=== PATIENT | male | born 1985 ===

== ENCOUNTER 2017-02-10 17:50 | Emergency (ER) | payer OTHER ==
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
[2017-02-10 20:53] VITALS: BP 110/72; PULSE 94; RESP 17; TEMP 97.9; O2SAT 98
[2017-02-10] MEDS ORDERED: Bacitracin 500 Units/gm Oint Foilpak UD ONE (20:56)
--- NOTE | 2017-02-11 09:11 | RAD ---
PROCEDURE: Cervical Spine Radiographs. HISTORY: Pain. COMPARISON: None. FINDINGS: BONES: There is straightening of the normal cervical lordosis. No fracture. Dens Intact. DISC SPACES: Normal. SOFT TISSUES: Normal. No prevertebral soft tissue swelling. OTHER FINDINGS: None. IMPRESSION: No fracture or subluxation. Cervical spine straightening
--- NOTE | 2017-02-11 09:12 | RAD ---
PROCEDURE: Radiographs of the Chest and Left Ribs. HISTORY: injury COMPARISON: None available. TECHNIQUE: Frontal radiograph of the chest and multiple oblique radiographs of the left ribs were obtained. FINDINGS: LEFT RIBS: No fracture or focal lesion visualized. LUNGS: Clear. PLEURA: No pneumothorax or pleural fluid. CARDIOVASCULAR: Normal sized heart. No pulmonary vascular congestion. OTHER FINDINGS: None. IMPRESSION: Unremarkable radiographs of the chest and left ribs. No left rib fracture.
--- NOTE | 2017-02-11 21:28 | CARD ---
APPROVED REPORT EKG Measurement Heart [id number] <Conclusion> Normal sinus rhythm with sinus arrhythmia Nonspecific ST and T wave abnormality Abnormal ECG
== END 2017-02-10 20:53 | disposition home or self-care (01) ==
LOC: C.ER 17:50
DX: S16.1XXA Strain of muscle, fascia and tendon at neck level, initial encounter (principal); S20.212A Contusion of left front wall of thorax, initial encounter; T22.112A Burn of first degree of left forearm, initial encounter; W22.11XA Striking against or struck by driver side automobile airbag, initial encounter; V43.52XA Car driver injured in collision with other type car in traffic accident, initial encounter; Y92.410 Unspecified street and highway as the place of occurrence of the external cause; R07.89 Other chest pain

== ENCOUNTER 2018-03-08 20:18 | Emergency (ER) | payer SELFPAY ==
[2018-03-08 20:28] VITALS: O2SAT 98
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
[2018-03-08 21:34] LABS: BASO # 0.1 K/uL (0.0-0.2); BASO % 1.1 % (0.0-2.0); EOS % 0.7 % (0.0-4.0); HEMOGLOBIN 12.9 g/dL (12.0-18.0); LYMPH # 1.9 K/uL (1.0-4.3); LYMPH % 38.1 % (20.0-40.0); MEAN CELL VOLUME 82.9 fL (80.0-94.0); MEAN CORPUSCULAR HEMOGLOBIN 27.5 pg (27.0-31.0); MEAN CORPUSCULAR HGB CONC 33.2 g/dL (33.0-37.0); MEAN PLATELET VOLUME 9.4 fL (7.2-11.7); MONO # 0.4 K/uL (0.0-0.8); MONO % 8.4 % (0.0-10.0); NEUT # 2.6 K/uL (1.8-7.0); NEUT % 51.7 % (50.0-75.0); NRBC % 0.1 % (0.0-2.0); RBC 4.68 Mil/uL (4.40-5.90); RED CELL DISTRIBUTION WIDTH 13.7 % (11.5-14.5)
[2018-03-08 21:39] LABS: SQUAMOUS EPITHIAL < 1 /hpf (0-5); URINE AMORPHOUS SEDIMENT MODERATE /ul (<OCC); URINE BACTERIA OCC (<OCC); URINE BILIRUBIN NEGATIVE (NEGATIVE); URINE BLOOD 2+ (NEGATIVE); URINE CLARITY Hazy (Clear); URINE COLOR Yellow (YELLOW); URINE GLUCOSE (UA) NORMAL (Normal); URINE LEUKOCYTE ESTERASE NEG Leu/uL (Negative); URINE PROTEIN NEGATIVE (NEGATIVE); URINE UROBILINOGEN NORMAL mg/dL (0.2-1.0)
[2018-03-08 21:44] LABS: ALB/GLOB RATIO 1.1 (1.0-2.1); ALT/SGPT 64 U/L (21-72); AST/SGOT 38 U/L (17-59); BLOOD UREA NITROGEN 13 mg/dL (9-20); CALCIUM 8.9 mg/dl (8.6-10.4); GFR AFRICAN-AMERICAN > 60; GFR NON-AFRICAN AMERICAN > 60
[2018-03-08 21:50] LABS: BARBITURATES, UR NEGATIVE (NEGATIVE); BENZODIAZEPINES, UR NEGATIVE (NEGATIVE); OPIATES, UR NEGATIVE (NEGATIVE); PHENCYCLIDINE, UR NEGATIVE (NEGATIVE)
[2018-03-09 00:26] VITALS: RESP 20
[2018-03-09 05:36] VITALS: BP 133/72; PULSE 99; TEMP 97.8
--- NOTE | 2018-03-10 00:06 | CARD ---
APPROVED REPORT EKG Measurement Heart [id number] NM [id number] [id number] <Conclusion> Sinus tachycardia Possible Left atrial enlargement Borderline ECG
== END 2018-03-09 05:36 | disposition home or self-care (01) ==
LOC: C.ER 20:18
DX: F10.20 Alcohol dependence, uncomplicated (principal); Z72.0 Tobacco use
CPT/HCPCS: 80053; 81001; 85025; 93005; 96372; 99285; G0480; J2060; J3486

== ENCOUNTER 2018-05-13 13:50 | Emergency (ER) | payer OTHER ==
[2018-05-13 14:03] VITALS: BP 132/80; PULSE 110; RESP 18; TEMP 98.8; O2SAT 97
--- NOTE | 2018-05-13 14:42 | RAD ---
Right ankle three views History: Pain. Fall. Comparison: None available. Findings: No evidence for acute displaced fracture or dislocation. Ankle mortise is maintained. Talar dome is intact. Impression: Negative acute. If pain persists, consider MRI.
--- NOTE | 2018-05-13 15:05 | C.PDOC ---
History Of Present Illness 32 y/o male presents to the ER complaining of right ankle pain since yesterday after tripping and twisting his right ankle when getting off the bus. He states that pain is worsened with ambulation and weight bearing. He denies any other injuries, sensory changes. Time Seen by Provider: 05/13/18 14:08 Chief Complaint (Nursing): Lower Extremity Problem/Injury History Per: Patient History/Exam Limitations: no limitations Onset/Duration Of Symptoms: Days Current Symptoms Are (Timing): Still Present Severity: Mild - Ankle/Foot Description Of Injury: Twisted Currently Unable To: Bear Weight, Bend Or Move Past Medical History Reviewed: Historical Data, Nursing Documentation, Vital Signs Vital Signs: Last Vital Signs Temp 98.8 F 05/13/18 14:01 Pulse 110 H 05/13/18 14:01 Resp 18 05/13/18 14:01 BP 132/80 05/13/18 14:01 Pulse Ox 97 05/13/18 16:24 - Medical History PMH: No Chronic Diseases Surgical History: No Surg Hx Family History: States: No Known Family Hx - Social History Hx Tobacco Use: Yes Hx Alcohol Use: Yes Hx Substance Use: No - Immunization History Hx Tetanus Toxoid Vaccination: No Hx Influenza Vaccination: No Hx Pneumococcal Vaccination: No Review Of Systems Constitutional: Negative for: Fever Musculoskeletal: Positive for: Other (Right ankle pain). Negative for: Back Pain, Leg Pain Skin: Negative for: Rash Neurological: Negative for: Weakness, Numbness Physical Exam - Physical Exam Appears: Well, Non-toxic, No Acute Distress Skin: Normal Color, Warm, Dry, No Rash Head: Atraumatic, Normacephalic Eye(s): bilateral: Normal Inspection Cardiovascular: Rhythm Regular Respiratory: Normal Breath Sounds, No Rales, No Rhonchi, No Wheezing Extremity: Tenderness (Tenderness to palpation at right lateral malleolus and anterior ankle. ), No Deformity, Swelling (Mild swelling at right ankle ), Other (Abrasion to the right hebert) Pulses: Left Dorsalis Pedis: Normal, Right Dorsalis Pedis: Normal Neurological/Psych: Oriented x3, Normal Sensation ED Course And Treatment O2 Sat by Pulse Oximetry: 97 (RA) Pulse Ox Interpretation: Normal - Other Rad XR right ankle X-Ray: Viewed By Me, Read By Radiologist Interpretation: Accession No. : [id number]. Patient Name / ID : KELLY Rodriguez / [id number]. Exam Date : 05/13/2018 14:14:48 ( Approved ). Study Comment : Sex / Age : M / 32Y. Creator : Delvin Tabares MD. Dictator : Delvin Tabares MD. Hearing Aid Fitter : Clinical Nurse Leader : Delvin Tabares MD. Approver2 : Report Date : 05/13/2018 14:40:45. My Comment : . Right ankle three views. History: Pain. Fall. Comparison: None available. Findings : No evidence for acute displaced fracture or dislocation. Ankle mortise is maintained. Talar dome is intact. Impression: Negative acute. If pain persists, consider MRI. Progress Note: Patient given PO Tylenol. Xrays of right ankle ordered and reviewed. Xray negative for acute fracture. Steven bandage and air cast applied by tobacco stripper. Physical Therapist gave patient crutches and instructions on how to use them. Patient instructed to follow up with Orthopedics/Corporate Development Analyst within 1 week. Rx for pain medication given. Reevaluation Time: 15:10 Reassessment Condition: Improved (Patient reassessed, pain has improved. He understands he should return to ED if symptoms worsen.) Disposition Counseled Patient/Family Regarding: Studies Performed, Diagnosis, Need For Followup, Rx Given - Disposition Referrals: Podiatry Clinic [Outside] Claritza Garcia DO [Emergency Provider] - Reid Trujillo MD [Staff Provider] - Disposition: HOME/ ROUTINE Disposition Time: 15:10 Condition: STABLE Additional Instructions: FOLLOW UP WITH ORTHOPEDICS/PODIATRY WITHIN 1 WEEK USE MEDICATION NEEDED ELEVATE ANKLE/FOOT MUCH POSSIBLE RETURN TO ER IF SYMPTOMS WORSEN Prescriptions: Naproxen 375 mg PO BID PRN #20 tablet PRN Reason: pain Instructions: Ankle Sprain (DC) Forms: [employer] (Venezuelan), Work Excuse Print Language: KISWAHILI - POA Present On Arrival: Falls Or Trauma - Clinical Impression Clinical Impression: Right ankle sprain - Scribe Statement The provider has reviewed the documentation as recorded by the Scribe Provider Attestation: Maxine Mccullough All medical record entries made by the Scribe were at my direction and personally dictated by me. I have reviewed the chart and agree that the record accurately reflects my personal performance of the history, physical exam, medical decision making, and the department course for this patient. I have also personally directed, reviewed, and agree with the discharge instructions and disposition.
== END 2018-05-13 15:27 | disposition home or self-care (01) ==
LOC: C.ER 13:50
DX: S93.401A Sprain of unspecified ligament of right ankle, initial encounter (principal); W01.0XXA Fall on same level from slipping, tripping and stumbling without subsequent striking against object, initial encounter
CPT/HCPCS: 73610; 97116; 97161; 99284; G8978; G8979; G8980

== ENCOUNTER 2018-05-23 18:27 | Inpatient (IN) | payer OTHER ==
[2018-05-23 18:41] VITALS: BMI 21.5
[2018-05-23 19:36] LABS: BASO % 0.4 % (0.0-2.0); EOS % 0.3 % (0.0-4.0); HEMOGLOBIN 13.2 g/dL (12.0-18.0); LYMPH # 2.1 K/uL (1.0-4.3); LYMPH % 32.3 % (20.0-40.0); MEAN CELL VOLUME 83.2 fL (80.0-94.0); MEAN CORPUSCULAR HGB CONC 33.7 g/dL (33.0-37.0); MONO # 0.5 K/uL (0.0-0.8); MONO % 8.4 % (0.0-10.0); NEUT # 3.8 K/uL (1.8-7.0); NEUT % 58.6 % (50.0-75.0); NRBC % 0.1 % (0.0-2.0); RBC 4.72 Mil/uL (4.40-5.90); WHITE BLOOD COUNT 6.5 K/uL (4.8-10.8)
[2018-05-23 19:48] LABS: ALB/GLOB RATIO 1.4 (1.0-2.1); ALBUMIN 4.4 g/dL (3.5-5.0); ALT/SGPT 49 U/L (21-72); AST/SGOT 54 U/L (17-59); BLOOD UREA NITROGEN 15 mg/dL (9-20); CALCIUM 9.2 mg/dl (8.6-10.4); GFR AFRICAN-AMERICAN > 60; GFR NON-AFRICAN AMERICAN > 60
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
[2018-05-23 20:18] LABS: SQUAMOUS EPITHIAL 2 /hpf (0-5); URINE AMORPHOUS SEDIMENT OCC /ul (<OCC); URINE BACTERIA OCC (<OCC); URINE BILIRUBIN NEGATIVE (NEGATIVE); URINE BLOOD NEGATIVE (NEGATIVE); URINE CLARITY Hazy (Clear); URINE COLOR Amber (YELLOW); URINE GLUCOSE (UA) NORMAL (Normal); URINE HYALINE CAST >20 /lpf (0-2); URINE LEUKOCYTE ESTERASE NEG Leu/uL (Negative); URINE PROTEIN 2+ mg/dL (NEGATIVE)
[2018-05-23 20:29] LABS: BARBITURATES, UR NEGATIVE (NEGATIVE); BENZODIAZEPINES, UR NEGATIVE (NEGATIVE); OPIATES, UR NEGATIVE (NEGATIVE); PHENCYCLIDINE, UR NEGATIVE (NEGATIVE)
[2018-05-23] MEDS ORDERED: Sodium Chloride 0.9% 500 ML IV ONE (21:02)
[2018-05-23] MEDS ORDERED: Thiamine 100 mg/ml Inj IV ONE (21:05)
[2018-05-23 21:06] LABS: ACETAMINOPHEN < 10.0 ug/mL (10.0-30.0); SALICYLATE < 1.0 mg/dL 1
--- NOTE | 2018-05-23 21:11 | CP.PCM.HP ---
<DamirchristopherPradip derasri ReyBethany - Last Filed: 05/23/18 21:17> History of Present Illness - History of Present Illness History of Present Illness: HPI: Patient is a 32 year old male with an unknown history who was brought into the ED by police. Patient was found being combative in the streets. In the ED, patient was agitated, required multiple security officers and 4 point restraints , as well as ativan and geodon to decrease agitation. Also in the ED, patient was found to be in rapid afib and was started on a cardizem drip. During examination, patient was sedated. History and review of systems not obtained. Per EMR, patient has been brought to the ER in the past due to similar complaints/intoxication. Present on Admission - Present on Admission Any Indicators Present on Admission: No Review of Systems - Review of Systems Systems not reviewed;Unavailable: Other (Sedated) Past Patient History - Infectious Disease Hx of Infectious Diseases: None - Past Social History Smoking Status: Light Smoker < 10 Cigarettes Daily - CARDIAC Hx Hypertension: No - PULMONARY Hx Tuberculosis: No - NEUROLOGICAL Hx Seizures: No - HEMATOLOGICAL/ONCOLOGICAL Hx Human Immunodeficiency Virus (HIV): No - GENITOURINARY/GYNECOLOGICAL Hx Sexually Transmitted Disorders: No - PSYCHIATRIC Hx Substance Use: No - SURGICAL HISTORY Hx Surgeries: No - ANESTHESIA Hx Anesthesia: No Hx Anesthesia Reactions: No Meds Allergies/Adverse Reactions: Allergies Allergy/AdvReac Type Severity Reaction Status Date / Time No Known Allergies Allergy Verified 05/23/18 18:40 Physical Exam - Constitutional Appears: Unkempt Additional comments: Sedated - Head Exam Head Exam: NORMOCEPHALIC. absent: ATRAUMATIC (abrasion on right mosque) - Eye Exam Pupil Exam: Mydriatic - ENT Exam ENT Exam: Mucous Membranes Dry - Respiratory Exam Respiratory Exam: Clear to Auscultation Bilateral, NORMAL BREATHING PATTERN. absent: Rales, Rhonchi, Wheezes, Respiratory Distress - Cardiovascular Exam Cardiovascular Exam: Tachycardia, Irregular Rhythm, +S1, +S2 - GI/Abdominal Exam GI & Abdominal Exam: Normal Bowel Sounds, Soft. absent: Distended, Firm, Tenderness - Extremities Exam Extremities exam: Positive for: normal inspection, pedal pulses present. Negative for: pedal edema - Neurological Exam Neurological exam: Altered (sedated) - Psychiatric Exam Additional comments: Sedated due to prior agitation - Skin Skin Exam: Dry, Intact, Normal Color, Warm Results - Vital Signs Recent Vital Signs: Last Vital Signs Temp 98.4 F 05/23/18 18:48 Pulse 165 H 05/23/18 19:59 Resp 16 05/23/18 19:59 BP 115/53 L 05/23/18 19:59 Pulse Ox 98 05/23/18 19:59 - Labs Result Diagrams: 05/23/18 19:20 05/23/18 19:20 Labs: Laboratory Results - last 24 hr 05/23/18 05/23/18 05/23/18 19:20 19:20 20:07 WBC 6.5 RBC 4.72 Hgb 13.2 Hct 39.2 MCV 83.2 MCH 28.0 MCHC 33.7 RDW 14.0 Plt Count 185 MPV 9.0 Neut % (Auto) 58.6 Lymph % (Auto) 32.3 [place] % (Auto) 8.4 Eos % (Auto) 0.3 Baso % (Auto) 0.4 Neut # (Auto) 3.8 Lymph # (Auto) 2.1 [place] # (Auto) 0.5 Eos # (Auto) 0.0 Baso # (Auto) 0.0 Sodium 148 Potassium 4.4 Chloride 109 H Carbon Dioxide 19 L Anion Gap 24 H BUN 15 Creatinine 0.9 Est GFR ( Amer) > 60 Est GFR (Non-Af Amer) > 60 Random Glucose 94 Calcium 9.2 Total Bilirubin 0.5 AST 54 ALT 49 Alkaline Phosphatase 168 H Troponin I < 0.0120 Total Protein 7.5 Albumin 4.4 Globulin 3.1 Albumin/Globulin Ratio 1.4 Urine Color Pratibha Urine Clarity Hazy Urine pH 5.0 Ur Specific [place] 1.020 Urine Protein 2+ H Urine Glucose (UA) Normal Urine Ketones Negative Urine Blood Negative Urine Nitrate Negative Urine Bilirubin Negative Urine Urobilinogen 4.0 Ur Leukocyte Esterase Neg Urine WBC (Auto) 6 H Urine RBC (Auto) 3 Ur Squamous Epith Cells 2 Amorphous Sediment Occ H Urine Bacteria Occ H Hyaline Casts >20 H Salicylates Urine Opiates Screen Urine Methadone Screen Acetaminophen Ur Barbiturates Screen Ur Phencyclidine Scrn Ur Amphetamines Screen U Benzodiazepines Scrn U Oth Cocaine Metabols U Cannabinoids Screen Alcohol, Quantitative 207 H 05/23/18 05/23/18 20:07 20:35 WBC RBC Hgb Hct MCV MCH MCHC RDW Plt Count MPV Neut % (Auto) Lymph % (Auto) [place] % (Auto) Eos % (Auto) Baso % (Auto) Neut # (Auto) Lymph # (Auto) [place] # (Auto) Eos # (Auto) Baso # (Auto) Sodium Potassium Chloride Carbon Dioxide Anion Gap BUN Creatinine Est GFR ( Amer) Est GFR (Non-Af Amer) Random Glucose Calcium Total Bilirubin AST ALT Alkaline Phosphatase Troponin I Total Protein Albumin Globulin Albumin/Globulin Ratio Urine Color Urine Clarity Urine pH Ur Specific [place] Urine Protein Urine Glucose (UA) Urine Ketones Urine Blood Urine Nitrate Urine Bilirubin Urine Urobilinogen Ur Leukocyte Esterase Urine WBC (Auto) Urine RBC (Auto) Ur Squamous Epith Cells Amorphous Sediment Urine Bacteria Hyaline Casts Salicylates < 1.0 Urine Opiates Screen Negative Urine Methadone Screen Negative Acetaminophen < 10.0 L Ur Barbiturates Screen Negative Ur Phencyclidine Scrn Negative Ur Amphetamines Screen Negative U Benzodiazepines Scrn Negative U Oth Cocaine Metabols Negative U Cannabinoids Screen Negative Alcohol, Quantitative Assessment & Plan - Assessment and Plan (Free Text) Plan: Afib w/rvr In the ED, cardizem 20mg IV was given Cardizem drip 10mg/hr IV Echo: f/u TSH: f/u Free T4: f/u Continue to monitor on telemetry Alcohol Abuse In ED, patient was given ativan 2mg IM and Geodon 20m IM for agitation Serum alcohol 207 at admission, follow up repeat Serum osmolality [facility] protocol 1:1 observation Seizure, Aspiration, and Fall Precautions Will add Ativan as needed for agitation/sign of withdrawal 500c NS bolus given with Thiamine 100mg IV once. Continue LR@100mls/hr Prophylaxis: - DVT: not indicated - GI: not indicated - NPO, will advance as tolerated <Clint Jacobsen P - Last Filed: 05/24/18 07:49> Results - Vital Signs Recent Vital Signs: Last Vital Signs Temp 98.6 F 05/24/18 06:05 Pulse 99 H 05/24/18 06:05 Resp 18 05/24/18 06:05 BP 128/66 05/24/18 06:05 Pulse Ox 100 05/24/18 06:05 - Labs Result Diagrams: 05/23/18 19:20 05/23/18 22:09 Labs: Laboratory Results - last 24 hr 05/23/18 05/23/18 05/23/18 19:20 19:20 20:07 WBC 6.5 RBC 4.72 Hgb 13.2 Hct 39.2 MCV 83.2 MCH 28.0 MCHC 33.7 RDW 14.0 Plt Count 185 MPV 9.0 Neut % (Auto) 58.6 Lymph % (Auto) 32.3 [place] % (Auto) 8.4 Eos % (Auto) 0.3 Baso % (Auto) 0.4 Neut # (Auto) 3.8 Lymph # (Auto) 2.1 [place] # (Auto) 0.5 Eos # (Auto) 0.0 Baso # (Auto) 0.0 Sodium 148 Potassium 4.4 Chloride 109 H Carbon Dioxide 19 L Anion Gap 24 H BUN 15 Creatinine 0.9 Est GFR ( Amer) > 60 Est GFR (Non-Af Amer) > 60 POC Glucose (mg/dL) Random Glucose 94 Serum Osmolality Calcium 9.2 Magnesium Total Bilirubin 0.5 AST 54 ALT 49 Alkaline Phosphatase 168 H Troponin I < 0.0120 Total Protein 7.5 Albumin 4.4 Globulin 3.1 Albumin/Globulin Ratio 1.4 Free T4 TSH 3rd Generation Urine Color Pratibha Urine Clarity Hazy Urine pH 5.0 Ur Specific [place] 1.020 Urine Protein 2+ H Urine Glucose (UA) Normal Urine Ketones Negative Urine Blood Negative Urine Nitrate Negative Urine Bilirubin Negative Urine Urobilinogen 4.0 Ur Leukocyte Esterase Neg Urine WBC (Auto) 6 H Urine RBC (Auto) 3 Ur Squamous Epith Cells 2 Amorphous Sediment Occ H Urine Bacteria Occ H Hyaline Casts >20 H Salicylates Urine Opiates Screen Urine Methadone Screen Acetaminophen Ur Barbiturates Screen Ur Phencyclidine Scrn Ur Amphetamines Screen U Benzodiazepines Scrn U Oth Cocaine Metabols U Cannabinoids Screen Alcohol, Quantitative 207 H 05/23/18 05/23/18 05/23/18 20:07 20:35 22:09 WBC RBC Hgb Hct MCV MCH MCHC RDW Plt Count MPV Neut % (Auto) Lymph % (Auto) [place] % (Auto) Eos % (Auto) Baso % (Auto) Neut # (Auto) Lymph # (Auto) [place] # (Auto) Eos # (Auto) Baso # (Auto) Sodium 148 Potassium 4.6 Chloride 111 H Carbon Dioxide 20 L Anion Gap 21 H BUN 15 Creatinine 0.7 L Est GFR ( Amer) > 60 Est GFR (Non-Af Amer) > 60 POC Glucose (mg/dL) Random Glucose 70 L Serum Osmolality Calcium 8.8 Magnesium 1.9 Total Bilirubin 0.4 AST 46 ALT 52 Alkaline Phosphatase 153 H Troponin I Total Protein 6.6 Albumin 3.9 Globulin 2.7 Albumin/Globulin Ratio 1.4 Free T4 TSH 3rd Generation < 0.02 L Urine Color Urine Clarity Urine pH Ur Specific [place] Urine Protein Urine Glucose (UA) Urine Ketones Urine Blood Urine Nitrate Urine Bilirubin Urine Urobilinogen Ur Leukocyte Esterase Urine WBC (Auto) Urine RBC (Auto) Ur Squamous Epith Cells Amorphous Sediment Urine Bacteria Hyaline Casts Salicylates < 1.0 Urine Opiates Screen Negative Urine Methadone Screen Negative Acetaminophen < 10.0 L Ur Barbiturates Screen Negative Ur Phencyclidine Scrn Negative Ur Amphetamines Screen Negative U Benzodiazepines Scrn Negative U Oth Cocaine Metabols Negative U Cannabinoids Screen Negative Alcohol, Quantitative 136 H 05/23/18 05/23/18 05/23/18 22:09 23:21 23:25 WBC RBC Hgb Hct MCV MCH MCHC RDW Plt Count MPV Neut % (Auto) Lymph % (Auto) [place] % (Auto) Eos % (Auto) Baso % (Auto) Neut # (Auto) Lymph # (Auto) [place] # (Auto) Eos # (Auto) Baso # (Auto) Sodium Potassium Chloride Carbon Dioxide Anion Gap BUN Creatinine Est GFR ( Amer) Est GFR (Non-Af Amer) POC Glucose (mg/dL) 56 L 53 L Random Glucose Serum Osmolality 341 H Calcium Magnesium Total Bilirubin AST ALT Alkaline Phosphatase Troponin I Total Protein Albumin Globulin Albumin/Globulin Ratio Free T4 6.80 H TSH 3rd Generation Urine Color Urine Clarity Urine pH Ur Specific [place] Urine Protein Urine Glucose (UA) Urine Ketones Urine Blood Urine Nitrate Urine Bilirubin Urine Urobilinogen Ur Leukocyte Esterase Urine WBC (Auto) Urine RBC (Auto) Ur Squamous Epith Cells Amorphous Sediment Urine Bacteria Hyaline Casts Salicylates Urine Opiates Screen Urine Methadone Screen Acetaminophen Ur Barbiturates Screen Ur Phencyclidine Scrn Ur Amphetamines Screen U Benzodiazepines Scrn U Oth Cocaine Metabols U Cannabinoids Screen Alcohol, Quantitative 05/24/18 05/24/18 00:10 01:47 WBC RBC Hgb Hct MCV MCH MCHC RDW Plt Count MPV Neut % (Auto) Lymph % (Auto) [place] % (Auto) Eos % (Auto) Baso % (Auto) Neut # (Auto) Lymph # (Auto) [place] # (Auto) Eos # (Auto) Baso # (Auto) Sodium Potassium Chloride Carbon Dioxide Anion Gap BUN Creatinine Est GFR ( Amer) Est GFR (Non-Af Amer) POC Glucose (mg/dL) 84 96 Random Glucose Serum Osmolality Calcium Magnesium Total Bilirubin AST ALT Alkaline Phosphatase Troponin I Total Protein Albumin Globulin Albumin/Globulin Ratio Free T4 TSH 3rd Generation Urine Color Urine Clarity Urine pH Ur Specific [place] Urine Protein Urine Glucose (UA) Urine Ketones Urine Blood Urine Nitrate Urine Bilirubin Urine Urobilinogen Ur Leukocyte Esterase Urine WBC (Auto) Urine RBC (Auto) Ur Squamous Epith Cells Amorphous Sediment Urine Bacteria Hyaline Casts Salicylates Urine Opiates Screen Urine Methadone Screen Acetaminophen Ur Barbiturates Screen Ur Phencyclidine Scrn Ur Amphetamines Screen U Benzodiazepines Scrn U Oth Cocaine Metabols U Cannabinoids Screen Alcohol, Quantitative Attending/Attestation - Attestation I have personally seen and examined this patient.: Yes I have fully participated in the care of the patient.: Yes I have reviewed all pertinent clinical information: Yes Notes (Text): 05/24/18 07:44 * Presentation with public intoxication, here found to have afib with rvr, at the time of exam patient was sedated due to agitation, hence details of history could not be obtained. W/u showed, hypreosmolarity from dehydration, hyperthyroidism. In ER rhythm converted to sinus tachycardia. * Plan w/u for hyperthyroidism thyroid uptake scan, USG for vascularity and nodularity, TPO ab, Atenolol 50mg to begin, endocrine consult if turns out grave 's radioacive iodine vs methimazole. * IV hydration, multivitamins. * See orders for detail.
[2018-05-23] MEDS ORDERED: Thiamine 100 mg/ml Inj ONE (22:13)
[2018-05-23] MEDS: Lactated Ringer's 1,000 ML IV SCH (22:15)
[2018-05-23 22:29] LABS: ALB/GLOB RATIO 1.4 (1.0-2.1); ALBUMIN 3.9 g/dL (3.5-5.0); ALT/SGPT 52 U/L (21-72); AST/SGOT 46 U/L (17-59); BLOOD UREA NITROGEN 15 mg/dL (9-20); CALCIUM 8.8 mg/dl (8.6-10.4); GFR AFRICAN-AMERICAN > 60; GFR NON-AFRICAN AMERICAN > 60
[2018-05-23] MEDS ORDERED: Metoprolol 1 mg/ml Inj IVP ONE (23:26)
[2018-05-23] MEDS ORDERED: Dextrose 50% SYRINGE Inj (50 ml) IV STA (23:30)
[2018-05-23 23:32] LABS: FREE T4 6.8 ng/dL (0.78-2.19)
[2018-05-23] MEDS ORDERED: Dextrose 50% SYRINGE Inj (50 ml) ONE (23:32)
[2018-05-24] MEDS ORDERED: Metoprolol 1 mg/ml Inj IVP ONE (00:22)
--- NOTE | 2018-05-24 08:41 | RAD ---
Date of service: 05/23/2018 HISTORY: cp COMPARISON: 02/10/2017 FINDINGS: LUNGS: No active pulmonary disease. PLEURA: No significant pleural effusion identified, no pneumothorax apparent. CARDIOVASCULAR: Within normal limits OSSEOUS STRUCTURES: No significant abnormalities. VISUALIZED UPPER ABDOMEN: Slight asymmetrical elevation left hemidiaphragm OTHER FINDINGS: None. IMPRESSION: No interval cardiopulmonary pathology noted
[2018-05-24 08:50] LABS: BASO % 0.2 % (0.0-2.0); EOS # 0.1 K/uL (0.0-0.7); EOS % 1.6 % (0.0-4.0); HEMOGLOBIN 11.5 g/dL (12.0-18.0); LYMPH # 3.1 K/uL (1.0-4.3); LYMPH % 50.9 % (20.0-40.0); MEAN CELL VOLUME 82.3 fL (80.0-94.0); MEAN PLATELET VOLUME 9.6 fL (7.2-11.7); MONO # 0.6 K/uL (0.0-0.8); MONO % 9.5 % (0.0-10.0); NEUT # 2.3 K/uL (1.8-7.0); NEUT % 37.8 % (50.0-75.0); NRBC % 0.1 % (0.0-2.0); RBC 4.09 Mil/uL (4.40-5.90); WHITE BLOOD COUNT 6.1 K/uL (4.8-10.8)
[2018-05-24] MEDS: Lactated Ringer's 1,000 ML IV SCH (09:00)
[2018-05-24 09:03] LABS: ALB/GLOB RATIO 1.4 (1.0-2.1); ALBUMIN 3.5 g/dL (3.5-5.0); ALT/SGPT 46 U/L (21-72); AST/SGOT 42 U/L (17-59); BLOOD UREA NITROGEN 15 mg/dL (9-20); GFR AFRICAN-AMERICAN > 60; GFR NON-AFRICAN AMERICAN > 60
[2018-05-24] MEDS ORDERED: methIMAzole 5 MG TAB PO SCH (09:45)
--- NOTE | 2018-05-24 09:52 | CP.PCM.PN ---
Subjective - Date & Time of Evaluation Date of Evaluation: 05/24/18 Time of Evaluation: 09:52 - Subjective Subjective: Progress Note for Hospitalist service Patient seen and examined at bedside. He states that he usually becomes combative and aggressive when he drinks alcohol. He admits to drinking alcohol daily. States he has been feeling lightheaded, dizzy, palpitations, frequent bowel movements, along with weight loss for the past 3 months or so. He denies chest pain, palpitations, nausea, vomiting, abdominal pain, changes in vision, sore throat, changes in hearing, headache, numbness. States he is concerned that he will lose his job. PMH: none PSH: none Family hx: nephew has hyperthyroidism Meds: multivitamin Allergies: NKDA Social hx: smokes 1pack over 3 days, drinks1-2 pints of vodka daily. denies drug use. Objective - Vital Signs/Intake and Output Vital Signs (last 24 hours): Temp Pulse Resp BP Pulse Ox 98.8 F 92 H 22 129/84 96 05/24/18 09:13 05/24/18 09:13 05/24/18 09:13 05/24/18 09:13 05/24/18 09:13 - Medications Medications: Current Medications Folic Acid (Folic Acid) 1 mg PO DAILY LUKE Lactated Ringer's (Lactated Ringer's) 1,000 mls @ 100 mls/hr IV .Q10H LUKE Last Admin: 05/24/18 09:00 Dose: 100 mls/hr Diltiazem HCl 125 mg/ Dextrose 125 mls @ 10 mls/hr IV .[id number] LUKE; 10 MG/HR PRN Reason: Protocol Last Admin: 05/24/18 07:13 Dose: 10 mg/hr, 10 mls/hr Methimazole (Tapazole) 5 mg PO Q8 LUKE Multivitamins (Hexavitamin) 1 tab PO DAILY LUKE Propranolol HCl (Inderal) 20 mg PO Q6 LUKE Thiamine HCl (Vitamin B1 Tab) 100 mg PO DAILY LUKE - Labs Labs: 05/24/18 08:13 05/24/18 08:13 - Constitutional Appears: Other (lethargic) - Head Exam Head Exam: ATRAUMATIC, NORMOCEPHALIC - Eye Exam Eye Exam: EOMI. absent: Scleral icterus Additional comments: no exophthalmos - ENT Exam ENT Exam: Mucous Membranes Moist - Neck Exam Neck Exam: Thyromegaly. absent: Lymphadenopathy, Tenderness Additional comments: Nontender thyroid - Respiratory Exam Respiratory Exam: Clear to Ausculation Bilateral, NORMAL BREATHING PATTERN. absent: Rales, Rhonchi, Wheezes, Stridor - Cardiovascular Exam Cardiovascular Exam: REGULAR RHYTHM, +S1, +S2. absent: Tachycardia, JVD Additional comments: Sinus rhythm in 90s - GI/Abdominal Exam GI & Abdominal Exam: Soft, Normal Bowel Sounds. absent: Firm, Guarding, Rigid, Tenderness, Organomegaly - Rectal Exam Rectal Exam: absent: Black Stool, Bloody Stool, Hemorrhoids - Extremities Exam Extremities Exam: Normal Capillary Refill. absent: Calf Tenderness, Pedal Edema - Neurological Exam Neurological Exam: Alert, Awake, Oriented x3 - Skin Skin Exam: Dry, Intact, Rash Additional comments: Folliculitis on chest and forehead Assessment and Plan - Assessment and Plan (Free Text) Assessment: 32 year old male who was brought in by police for alcohol intoxication, was found to be in Afib in RVR. Plan: Assessment/plan Hyperthyroidism Continue to monitor on telemetry Propanolol 20mg Q6 D/christo Cardizem drip Methimazole 10mg PO Q8 vitals Q4 05/24/18 Thyroid ultrasound: Enlarged heterogeneous hypervascular thyroid Follow up on thyroid studies Heating Engineer Dr. Croft consulted, help appreciated. Follow up on AM cortisol, free T4 Antithyrotropin receptor antibody ordered. Monitor LFTs Monitor to see if patient has any signs of difficulty swallowing or painful swallowing, as this may represent signs of agranulocytosis, possible side effect of Methimazole. Atrial fibrillation Initial EKG: Afib with RVR Currently NSR with rate in 90s CHADsVASc score 0 HASBLED score 1 Patient received Cardizem x1, and then started on Cardizem drip Cardizem drip D/christo 2 after initiated on Propranolol 20 Q6 Propranolol 20mg Q6 Night Nurse Dr. Tolentino consulted, help appreciated. Dr. Tolentino suggested that episode of atrial fibrillation was likely due to alcohol intoxication, given patient is currently in NSR. Advised to continue to monitor. ECHO follow up Alcohol intoxication Alcohol withdrawal Monitor for signs of withdrawal Ativan 1mg Q3 PRN MVI/Thiamine/Folic acid HIV negative Seizure precautions Fall precautions CIWA protocol Aspiration precautions Nicotine addiction Nicotine patch History of right ankle sprain s/p fall while intoxicated 1 week ago Weight bearing without tenderness or edema MARY Riojas Case discussed with Dr. Carrillo
--- NOTE | 2018-05-24 10:11 | US ---
Date of service: 05/24/2018 HISTORY: hyperthyroidism TECHNIQUE: Sonographic evaluation of the thyroid gland. COMPARISON: None. FINDINGS: RIGHT LOBE: Measures 6.0 x 3.6 x 3.4 cm. Heterogeneous with increased flow. Nodules: None LEFT LOBE: Measures 5.2 x 2.6 x 2.9 cm. Heterogeneous with increased flow. Nodules: None ISTHMUS: Measures 0.8 cm. Heterogeneous with increased flow. Nodules: None OTHER FINDINGS: None . IMPRESSION: Enlarged, heterogeneous, hypervascular thyroid.
[2018-05-24] MEDS: Multiple Vitamins Tab PO SCH (10:20)
[2018-05-24 11:01] LABS: FOLATE 18.1 ng/mL
[2018-05-24] MEDS: methIMAzole 5 MG TAB PO SCH ×2 (13:45→17:59)
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
--- NOTE | 2018-05-25 00:23 | CON ---
DATE: 05/24/2018 ENDOCRINOLOGY CONSULT LOCATION: Room 565. HISTORY OF PRESENT ILLNESS: This is a 32-year-old male, apparently healthy who suddenly became very combative and agitated and was brought in by the police officers to the emergency room for further workup and management and is being referred now for endocrine evaluation because of abnormal thyroid function studies. He was also found to be in new onset of rapid atrial fibrillation and was started on the Cardizem drip infusion after a bolus injection given at the ER. PAST MEDICAL HISTORY: Essentially unremarkable. MEDICATIONS: He denies any medications to any kind of medical conditions. FAMILY HISTORY: A cousin has a thyroid disorder, but no other close family member has any kind of thyroid endocrinopathy, but otherwise has positive diabetes and hypertension in both sides of his family. SOCIAL HISTORY: The patient has supportive family. No known substance use. REVIEW OF SYSTEMS: Admits to generalized body weakness with easy fatigability and tiredness and suboptimal energy level over the last few months prior to admission. Also admits to marked insomnia with bifrontal headaches, most prominent in the last few weeks prior to admission. Also admits to mood instability and lability with agitation and anxiety spells, again worse in the last week or so prior to admission. No chest pains, but admits to palpitations, worse on exertion with episodic shortness of breath. His oral intake has been variable with nausea, dyspepsia, and hyperdefecation. PHYSICAL EXAMINATION: GENERAL: This is an average built male in no apparent distress. VITAL SIGNS: With blood pressure of 140/80, pulse of 100 beats per minute and regular, temperature 98, and respirations 20. Height is 5 feet 10 inches. Weight is 150 pounds. HEENT: Head is normocephalic. Eyes are anicteric with pink conjunctivae. Funduscopy not possible at this time. Ears, nose, and throat otherwise normal. NECK: Supple. Thyroid gland shows mild diffuse thyromegaly, which is firm and nontender with no overt or palpable thyroid bruits or thyroid nodules. HEART: Hyperdynamic precordium. S1 and S2 are rapid and regular. LUNGS: Clear to auscultation. ABDOMEN: Flat and soft with positive bowel sounds. EXTREMITIES: No peripheral edema. Pulses are +2 bilaterally. LABORATORY DATA: His chemistry showed a BUN of 15, sodium 148, potassium 4.6, chloride 111, CO2 of 20, glucose 70, and creatinine 0.7. His free T4 is 6.8 with a TSH of less than 0.02. ASSESSMENT: This is a 32-year-old male with overt thyrotoxicosis, presenting here with rapid atrial fibrillation and supervening marked hyperthyroidism both historically, clinically and biochemically, most likely related to underlying autoimmune thyroiditis. He has a small diffuse toxic goiter with no overt Graves orbitopathy. PLAN OF MANAGEMENT: We will obtain a comprehensive thyroid hormonal profile especially a total T4 degree of his hyperthyroid condition and will help with the dose titration of his medical therapy given as Tapazole medications. In the meantime, we will increase his Tapazole to 10 mg p.o. t.i.d. to start today as ordered. The thyroid antibodies have been ordered, and we will add a thyroid peroxidase and thyroid-stimulating immunoglobulin as ordered. We will also obtain a thyroid ultrasound to fully delineate the thyroid lobe dimensions. He is going today for a thyroid scan and update as noted. We will continue the medical therapy for now and in the future, he may be given the therapeutic options of radioactive iodine ablation therapy as a definitive management. We will follow and advise accordingly. Paige Croft MD
--- NOTE | 2018-05-25 01:10 | CARD ---
APPROVED REPORT Date of service: 05/23/2018 EKG Measurement Heart [id number] <Conclusion> Atrial fibrillation with rapid ventricular response Abnormal ECG
--- NOTE | 2018-05-25 01:11 | CARD ---
APPROVED REPORT Date of service: 05/23/2018 EKG Measurement Heart [id number] <Conclusion> Atrial fibrillation with rapid ventricular response Abnormal ECG
[2018-05-25] MEDS ORDERED: Bacitracin 500 Units/gm Oint Foilpak UD TOP ONE (01:32)
[2018-05-25 08:09] VITALS: O2SAT 98
--- NOTE | 2018-05-25 11:53 | CP.PCM.PN ---
Subjective - Date & Time of Evaluation Date of Evaluation: 05/25/18 Time of Evaluation: 11:52 - Subjective Subjective: Progress Note for Hospitalist service Patient seen and examined at bedside. He states that he has been eating well. States he has had bowel movements every 30 minutes, which are soft, but not loose, watery or bloody. He denies bloody or dark stools. He states he feels much better than before. He states his chest pain has improved. He denies feeling shortness of breath, fevers, chills, headaches, nausea, abdominal pain, vomiting, diarrhea, leg pain, difficulty swallowing or painful swallowing. Objective - Vital Signs/Intake and Output Vital Signs (last 24 hours): Temp Pulse Resp BP Pulse Ox 98.1 F 96 H 20 129/71 98 05/25/18 08:00 05/25/18 08:00 05/25/18 08:00 05/25/18 08:00 05/25/18 08:00 Intake and Output: 05/25/18 05/25/18 06:59 18:59 Intake Total 240 Balance 240 - Medications Medications: Current Medications Folic Acid (Folic Acid) 1 mg PO DAILY [facility] Last Admin: 05/24/18 10:21 Dose: 1 mg Lactated Ringer's (Lactated Ringer's) 1,000 mls @ 100 mls/hr IV .Q10H [facility] Last Admin: 05/24/18 09:00 Dose: 100 mls/hr Lorazepam (Ativan) 1 mg IVP Q3H PRN PRN Reason: Symptoms of alcohol withdrawl Last Admin: 05/25/18 02:01 Dose: 1 mg Methimazole (Tapazole) 10 mg PO TID [facility] Last Admin: 05/24/18 17:59 Dose: 10 mg Multivitamins (Hexavitamin) 1 tab PO DAILY [facility] Last Admin: 05/24/18 10:20 Dose: 1 tab Nicotine (Nicoderm Cq) 1 patch TD DAILY [facility] Last Admin: 05/24/18 22:34 Dose: 1 patch Propranolol HCl (Inderal) 20 mg PO Q6 [facility] Last Admin: 05/25/18 02:42 Dose: 20 mg Thiamine HCl (Vitamin B1 Tab) 100 mg PO DAILY [facility] Last Admin: 05/24/18 10:20 Dose: 100 mg - Labs Labs: 05/24/18 08:13 05/24/18 08:13 - Constitutional Appears: Well, No Acute Distress - Head Exam Head Exam: ATRAUMATIC Additional comments: small 2cm circular lesion on right occiput, mild tender to touch, no drainage small 2cm rounded lesion on right forehead - Eye Exam Eye Exam: EOMI. absent: Nystagmus, Scleral icterus - ENT Exam ENT Exam: Mucous Membranes Moist - Neck Exam Neck Exam: Full ROM, Thyromegaly. absent: Lymphadenopathy Additional comments: enlarged thyroid, nontender - Respiratory Exam Respiratory Exam: Clear to Ausculation Bilateral, NORMAL BREATHING PATTERN. absent: Rales, Rhonchi, Wheezes, Stridor - Cardiovascular Exam Cardiovascular Exam: REGULAR RHYTHM, +S1, +S2. absent: Tachycardia Additional comments: Regular rate in 90s - GI/Abdominal Exam GI & Abdominal Exam: Soft, Normal Bowel Sounds. absent: Distended, Firm, Guarding, Rigid, Tenderness, Rebound - Extremities Exam Extremities Exam: Normal Capillary Refill. absent: Calf Tenderness, Pedal Edema Additional comments: Abrasion to right knee. Right ankle: nontender. nonerythematous. Able to weight bear. Walking around his room without difficulty or pain. - Neurological Exam Neurological Exam: Alert, Awake, CN II-XII Intact, Oriented x3 - Skin Skin Exam: Abrasion (right knee. ) Assessment and Plan - Assessment and Plan (Free Text) Plan: Assessment/plan Hyperthyroidism Continue to monitor on telemetry Free T4 05/23/18 6.8 -> 05/25/18 5.7 TSH <0.02 Thyroxine T4 >24.9 Propanolol 20mg Q6 D/christo Cardizem drip 05/24/18 Methimazole 10mg TID increased to 20mg PO BID on 05/25/18) vitals Q4 05/24/18 Thyroid ultrasound: Enlarged heterogeneous hypervascular thyroid 05/25/18 Thyroid nuclear scan: no hot or cold nodule. normal 24 hr RAIU of 37%. Cortisol AM 7.[address] Croft consulted, help appreciated. Follow up on AM cortisol, free T4 Antithyrotropin receptor antibody ordered. Monitor LFTs Monitor to see if patient has any signs of difficulty swallowing or painful swallowing, as this may represent signs of agranulocytosis, possible side effect of Methimazole. Atrial fibrillation Initial EKG: Afib with RVR Currently NSR with rate in 90s CHADsVASc score 0 HASBLED score 1 Patient received Cardizem x1, and then started on Cardizem drip Cardizem drip D/christo 2 after initiated on Propranolol 20 Q6 Propranolol 20mg Q6 [employer] [address]. Tolentino consulted, help appreciated. Dr. Tolentino suggested that episode of atrial fibrillation was likely due to alcohol intoxication, given patient is currently in NSR. Advised to continue to monitor. 05/23/18 CXR negative ECHO normal LV function. LV EF is within normal range. no regional wall motion abnormalities notied. there is mild tricuspid regurgitaion. right ventricular systolic pressure is estimate at 30-40mmHg. Patient is not a candidate for anticoagulation, given hx of ETOH abuse and falls Alcohol intoxication Alcohol withdrawal Monitor for signs of withdrawal Ativan 1mg Q3 PRN MVI/Thiamine/Folic acid HIV negative Seizure precautions Fall precautions CIWA protocol Aspiration precautions Nicotine addiction Nicotine patch History of right ankle sprain s/p fall while intoxicated 1 week ago Weight bearing without tenderness or edema Adryan Moraes, KELLYYI Case discussed with Dr. Carrillo
[2018-05-25] MEDS: Multiple Vitamins Tab PO SCH (12:24)
[2018-05-25] MEDS: methIMAzole 5 MG TAB PO SCH ×2 (12:24→14:50)
--- NOTE | 2018-05-25 14:22 | CARD ---
APPROVED REPORT Date of service: 05/25/2018 EXAM: Two-dimensional and M-mode echocardiogram with Doppler and color Doppler. INDICATION Atrial Fibrillation alcohol abuse 2D DIMENSIONS IVSd0.8 (0.7-1.1cm)LVDd4.7 (3.9-5.9cm) PWd0.9 (0.7-1.1cm)LVDs2.9 (2.5-4.0cm) FS (%) 39.2 %LVEF (%)69.6 (>50%) M-Mode DIMENSIONS Left Atrium (MM)3.00 (2.5-4.0cm)IVSd0.95 (0.7-1.1cm) Aortic Root3.15 (2.2-3.7cm)LVDd5.20 (4.0-5.6cm) Aortic Cusp Exc.2.22 (1.5-2.0cm)PWd0.82 (0.7-1.1cm) FS (%) 39 %LVDs3.17 (2.0-3.8cm) LVEF (%)69 (>50%) Mitral Valve MV E Ubnbulzw53.4cm/sMV A Zmsgtcjp47.1cm/sE/A ratio1.2 TDI E/Lateral E'0.0E/Medial E'0.0 Tricuspid Valve TR Peak Eimbvfdi500ct/sTR Peak Gr.[id number] LEFT VENTRICLE The left ventricle is normal size. There is normal left ventricular wall thickness. The left ventricular function is normal. The left ventricular ejection fraction is within the normal range. No regional wall motion abnormalities noted. The left ventricular diastolic function is normal. No left ventricle thrombus noted on this study. There is no ventricular septal defect visualized. There is no left ventricular aneurysm. There is no mass noted in the left ventricle. RIGHT VENTRICLE The right ventricle is normal size. There is normal right ventricular wall thickness. The right ventricular systolic function is normal. ATRIA The left atrium size is normal. The right atrium size is normal. The interatrial septum is intact with no evidence for an atrial septal defect. AORTIC VALVE The aortic valve is normal in structure and function. No aortic regurgitation is present. There is no aortic valvular stenosis. There is no aortic valvular vegetation. MITRAL VALVE The mitral valve is normal in structure and function. There is no evidence of mitral valve prolapse. There is no mitral valve stenosis. There is no mitral valve regurgitation noted. TRICUSPID VALVE The tricuspid valve is normal in structure and function. There is mild tricuspid regurgitation. Right ventricular systolic pressure is estimated at 30-40 mmHg. There is no tricuspid valve prolapse or vegetation. There is no tricuspid valve stenosis. PULMONIC VALVE The pulmonary valve is normal in structure and function. There is no pulmonic valvular regurgitation. There is no pulmonic valvular stenosis. GREAT VESSELS The aortic root is normal in size. The ascending aorta is normal in size. The pulmonary artery is normal. The IVC is normal in size and collapses >50% with inspiration. PERICARDIAL EFFUSION The pericardium appears normal. There is no pleural effusion. <Conclusion> The left ventricular function is normal. The left ventricular ejection fraction is within the normal range. No regional wall motion abnormalities noted. There is mild tricuspid regurgitation. Right ventricular systolic pressure is estimated at 30-40 mmHg.
[2018-05-25 14:32] LABS: BASO % 0.3 % (0.0-2.0); EOS # 0.2 K/uL (0.0-0.7); EOS % 2.7 % (0.0-4.0); HEMOGLOBIN 13.4 g/dL (12.0-18.0); LYMPH # 1.6 K/uL (1.0-4.3); LYMPH % 27.2 % (20.0-40.0); MEAN CELL VOLUME 81.7 fL (80.0-94.0); MEAN CORPUSCULAR HEMOGLOBIN 27.6 pg (27.0-31.0); MEAN CORPUSCULAR HGB CONC 33.8 g/dL (33.0-37.0); MEAN PLATELET VOLUME 9.4 fL (7.2-11.7); MONO # 0.5 K/uL (0.0-0.8); MONO % 8.7 % (0.0-10.0); NEUT # 3.5 K/uL (1.8-7.0); NEUT % 61.1 % (50.0-75.0); NRBC % 0.1 % (0.0-2.0); RBC 4.86 Mil/uL (4.40-5.90); RED CELL DISTRIBUTION WIDTH 13.9 % (11.5-14.5); WHITE BLOOD COUNT 5.8 K/uL (4.8-10.8)
[2018-05-25 15:07] LABS: ALB/GLOB RATIO 1.4 (1.0-2.1); ALBUMIN 4.2 g/dL (3.5-5.0); ALT/SGPT 54 U/L (21-72); AST/SGOT 46 U/L (17-59); BLOOD UREA NITROGEN 10 mg/dL (9-20); CALCIUM 10.3 mg/dl (8.6-10.4); GFR AFRICAN-AMERICAN > 60; GFR NON-AFRICAN AMERICAN > 60
[2018-05-25 15:10] LABS: T4 > 24.9 ug/dL (5.5-11.0)
--- NOTE | 2018-05-25 15:51 | NM ---
Date of service: 05/25/2018 PROCEDURE: Nuclear medicine thyroid scan. HISTORY: hyperthyroidism COMPARISON: 05/24/2018 right ultrasound TECHNIQUE: 187 uCi of the iodine 123 was administered orally. Frontal and oblique planar images of the thyroid gland were obtained. FINDINGS: Symmetric uptake of tracer was seen in the thyroid gland. No focal hot or cold nodule was identified. The 24 hr thyroid uptake was 17.3 % (normal range 15-35%). IMPRESSION: 1. No hot or cold nodule identified. 2. Normal 24 hr RAIU of 17.3%.
[2018-05-25] MEDS ORDERED: methIMAzole 5 MG TAB PO SCH (18:00)
--- NOTE | 2018-05-25 18:30 | PN ---
DATE: 05/25/2018 ENDO FOLLOWUP NOTE LOCATION: In room 565. SUBJECTIVE: This is a 32-year-old male presenting here with new onset of rapid atrial fibrillation and is also now being followed closely for metabolic management because of recent diagnosis of overt hyperthyroidism as noted thereof. He admits to generalized body weakness with increasing insomnia and hyperadrenergic manifestations thereof. The comprehensive thyroid profile ordered for today is still pending, but the initial thyroid indices showed a free T4 of 6.80 with a TSH of less than 0.02 and the chemistry showed a BUN of 15, sodium 141, potassium 3.8, chloride 104, CO2 of 26, glucose 125, and creatinine 0.4. His thyroid ultrasound showed a right lobe measuring 6 x 3.6 cm and a left lobe measuring 5.2 x 2.6 cm, which is quite moderately enlarged goiter as noted thereof. The normal dimensions of the right or left thyroid lobes 2.5 cm. ASSESSMENT: This is a 32-year-old male with overt hyperthyroidism, both historically, clinically and biochemically with underlying diffuse toxic goiter, confirmed radiologically with an ultrasound undertaken thereof. PLAN OF MANAGEMENT: We will continue the Tapazole given as 10 mg p.o. t.i.d. after meals as ordered. We will titrate incrementally as indicated to optimize metabolic control. We will obtain serial chemistries and supplement accordingly as needed. We will follow. Paige Croft MD
--- NOTE | 2018-05-25 19:28 | PN ---
DATE: 05/25/2018 SUBJECTIVE: The patient denies chest pain or palpitation. He is currently in sinus rhythm. PHYSICAL EXAMINATION: VITAL SIGNS: Blood pressure 129/71, heart rate 96, temperature 98.1, respiration 20. HEENT: Normocephalic. CHEST: Clear. HEART: S1 and S2 regular. EXTREMITIES: No edema. ASSESSMENT: 1. Paroxysmal atrial fibrillation. 2. Status post alcohol intoxication. 3. Hyperthyroidism. Thyroid ultrasound revealed enlarged heterogeneous and hypervascular thyroid. RECOMMENDATIONS: Continue Inderal 20 mg every 6 hours, Tapazole mg t.i.d., thiamine 100 mg once a day. Case was discussed with Dr. Oneil Carrillo. 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 Jacob Tolentino MD
[2018-05-26 00:15] VITALS: RESP 20
[2018-05-26 07:41] VITALS: BP 117/71; TEMP 97.8
[2018-05-26 08:14] VITALS: PULSE 80
--- NOTE | 2018-05-26 09:15 | CP.PCM.PN ---
Subjective - Date & Time of Evaluation Date of Evaluation: 05/26/18 Time of Evaluation: 09:15 - Subjective Subjective: Progress note for Hospitalist service. Objective - Vital Signs/Intake and Output Vital Signs (last 24 hours): Temp Pulse Resp BP Pulse Ox 97.8 F 80 20 117/71 98 05/26/18 07:00 05/26/18 08:10 05/26/18 07:00 05/26/18 07:00 05/26/18 07:00 Intake and Output: 05/26/18 05/26/18 06:59 18:59 Intake Total 480 Balance 480 - Medications Medications: Current Medications Folic Acid (Folic Acid) 1 mg PO DAILY [facility] Last Admin: 05/25/18 12:24 Dose: 1 mg Lorazepam (Ativan) 1 mg IVP Q3H PRN PRN Reason: Symptoms of alcohol withdrawl Last Admin: 05/25/18 02:01 Dose: 1 mg Methimazole (Tapazole) 20 mg PO BID [facility] Multivitamins (Hexavitamin) 1 tab PO DAILY [facility] Last Admin: 05/25/18 12:24 Dose: 1 tab Nicotine (Nicoderm Cq) 1 patch TD DAILY [facility] Last Admin: 05/25/18 12:25 Dose: 1 patch Propranolol HCl (Inderal) 20 mg PO Q6 [facility] Last Admin: 05/26/18 05:55 Dose: 20 mg Thiamine HCl (Vitamin B1 Tab) 100 mg PO DAILY [facility] Last Admin: 05/25/18 12:25 Dose: 100 mg - Labs Labs: 05/25/18 14:25 05/25/18 14:25
[2018-05-26] MEDS: Multiple Vitamins Tab PO SCH (09:36)
--- NOTE | 2018-05-26 10:12 | CP.PCM.PCO ---
Physician Communication Note - Physician Communication Note Physician Communication Note: Please see above
--- NOTE | 2018-05-26 11:22 | CP.PCM.DIS ---
Provider - Provider Date of Admission: 05/23/18 20:29 Attending physician: Oneil Carrillo Consults: Cardiology: Dr. Tolentino Endocrinology: Dr. Croft Time Spent in preparation of Discharge (in minutes): 40 Hospital Course - Lab Results Lab Results: Most Recent Lab Values WBC 5.8 K/uL (4.8-10.8) 05/25/18 14:25 RBC 4.86 Mil/uL (4.40-5.90) 05/25/18 14:25 Hgb 13.4 g/dL (12.0-18.0) 05/25/18 14:25 Hct 39.7 % (35.0-51.0) 05/25/18 14:25 MCV 81.7 fL (80.0-94.0) 05/25/18 14:25 MCH 27.6 pg (27.0-31.0) 05/25/18 14:25 MCHC 33.8 g/dL (33.0-37.0) 05/25/18 14:25 RDW 13.9 % (11.5-14.5) 05/25/18 14:25 Plt Count 179 K/uL (130-400) 05/25/18 14:25 MPV 9.4 fL (7.2-11.7) 05/25/18 14:25 Neut % (Auto) 61.1 % (50.0-75.0) 05/25/18 14:25 Lymph % (Auto) 27.2 % (20.0-40.0) 05/25/18 14:25 Foster % (Auto) 8.7 % (0.0-10.0) 05/25/18 14:25 Eos % (Auto) 2.7 % (0.0-4.0) 05/25/18 14:25 Baso % (Auto) 0.3 % (0.0-2.0) 05/25/18 14:25 Neut # (Auto) 3.5 K/uL (1.8-7.0) 05/25/18 14:25 Lymph # (Auto) 1.6 K/uL (1.0-4.3) 05/25/18 14:25 Foster # (Auto) 0.5 K/uL (0.0-0.8) 05/25/18 14:25 Eos # (Auto) 0.2 K/uL (0.0-0.7) 05/25/18 14:25 Baso # (Auto) 0.0 K/uL (0.0-0.2) 05/25/18 14:25 Sodium 139 mmol/L (132-148) 05/25/18 14:25 Potassium 4.7 mmol/L (3.6-5.2) 05/25/18 14:25 Chloride 103 mmol/L (98-107) 05/25/18 14:25 Carbon Dioxide 26 mmol/L (22-30) 05/25/18 14:25 Anion Gap 15 (10-20) 05/25/18 14:25 BUN 10 mg/dL (9-20) 05/25/18 14:25 Creatinine 0.4 mg/dL (0.8-1.5) L 05/25/18 14:25 Est GFR ( Amer) > 60 05/25/18 14:25 Est GFR (Non-Af Amer) > 60 05/25/18 14:25 POC Glucose (mg/dL) 96 mg/dL (65-110) 05/24/18 01:47 Random Glucose 175 mg/dL (75-110) H 05/25/18 14:25 Serum Osmolality 341 mosm/kg (272-300) H 05/23/18 22:09 Calcium 10.3 mg/dl (8.6-10.4) 05/25/18 14:25 Phosphorus 3.7 mg/dL (2.5-4.5) 05/25/18 14:25 Magnesium 1.7 mg/dL (1.6-2.3) 05/25/18 14:25 Total Bilirubin 0.9 mg/dL (0.2-1.3) 05/25/18 14:25 AST 46 U/L (17-59) 05/25/18 14:25 ALT 54 U/L (21-72) 05/25/18 14:25 Alkaline Phosphatase 150 U/L (38-126) H D 05/25/18 14:25 Troponin I < 0.0120 ng/mL (0.00-0.120) 05/23/18 19:20 Total Protein 7.3 g/dL (6.3-8.3) 05/25/18 14:25 Albumin 4.2 g/dL (3.5-5.0) 05/25/18 14:25 Globulin 3.1 gm/dL (2.2-3.9) 05/25/18 14:25 Albumin/Globulin Ratio 1.4 (1.0-2.1) 05/25/18 14:25 Vitamin B12 357 pg/mL (239-931) 05/24/18 09:37 Folate 18.1 ng/mL 05/24/18 09:37 Free T4 5.70 ng/dL (0.78-2.19) H 05/25/18 14:25 Thyroxine (T4) > 24.9 ug/dL (5.5-11.0) H 05/25/18 14:25 TSH 3rd Generation < 0.02 mIU/L (0.46-4.68) L 05/25/18 14:25 Cortisol AM Sample 7.1 ug/dL (4.46-22.7) 05/25/18 14:25 Urine Color Pratibha (YELLOW) 05/23/18 20:07 Urine Clarity Hazy (Clear) 05/23/18 20:07 Urine pH 5.0 (5.0-8.0) 05/23/18 20:07 Ur Specific [place] 1.020 (1.003-1.030) 05/23/18 20:07 Urine Protein 2+ mg/dL (NEGATIVE) H 05/23/18 20:07 Urine Glucose (UA) Normal mg/dL (Normal) 05/23/18 20:07 Urine Ketones Negative mg/dL (NEGATIVE) 05/23/18 20:07 Urine Blood Negative (NEGATIVE) 05/23/18 20:07 Urine Nitrate Negative (NEGATIVE) 05/23/18 20:07 Urine Bilirubin Negative (NEGATIVE) 05/23/18 20:07 Urine Urobilinogen 4.0 mg/dL (0.2-1.0) 05/23/18 20:07 Ur Leukocyte Esterase Neg Haley/uL (Negative) 05/23/18 20:07 Urine WBC (Auto) 6 /hpf (0-5) H 05/23/18 20:07 Urine RBC (Auto) 3 /hpf (0-3) 05/23/18 20:07 Ur Squamous Epith Cells 2 /hpf (0-5) 05/23/18 20:07 Amorphous Sediment Occ /ul (<OCC) H 05/23/18 20:07 Urine Bacteria Occ (<OCC) H 05/23/18 20:07 Hyaline Casts >20 /lpf (0-2) H 05/23/18 20:07 Salicylates < 1.0 mg/dL 1 05/23/18 20:35 Urine Opiates Screen Negative (NEGATIVE) 05/23/18 20:07 Urine Methadone Screen Negative (NEGATIVE) 05/23/18 20:07 Acetaminophen < 10.0 ug/mL (10.0-30.0) L 05/23/18 20:35 Ur Barbiturates Screen Negative (NEGATIVE) 05/23/18 20:07 Ur Phencyclidine Scrn Negative (NEGATIVE) 05/23/18 20:07 Ur Amphetamines Screen Negative (NEGATIVE) 05/23/18 20:07 U Benzodiazepines Scrn Negative (NEGATIVE) 05/23/18 20:07 U Oth Cocaine Metabols Negative (NEGATIVE) 05/23/18 20:07 U Cannabinoids Screen Negative (NEGATIVE) 05/23/18 20:07 Alcohol, Quantitative 136 mg/dl (0-10) H 05/23/18 22:09 Thyroperoxidase Ab 116 IU/mL (<9) H 05/24/18 08:13 Thyroglobulin Antibody <1 IU/mL (< OR = 1) 05/24/18 09:37 HIV 1&2 Antibody Screen Negative (NEGATIVE) 05/24/18 09:37 - Hospital Course Hospital Course: H&P HPI: Patient is a 32 year old male with an unknown history who was brought into the ED by police. Patient was found being combative in the streets. In the ED, patient was agitated, required multiple security officers and 4 point restraints , as well as ativan and geodon to decrease agitation. Also in the ED, patient was found to be in rapid afib and was started on a cardizem drip. During examination, patient was sedated. History and review of systems not obtained. Per EMR, patient has been brought to the ER in the past due to similar complaints/intoxication. PMH: none PSH: none Family hx: nephew has hyperthyroidism Meds: multivitamin Allergies: NKDA Social hx: smokes 1pack over 3 days, drinks1-2 pints of vodka daily. denies drug use. Hospital course: Patient was admitted for evaluation of atrial fibrillation and hyperthyroidism. Patient was found to be in Afib in RVR. Patient received a dose of Cardizem in the ED, and was then started on Cardizem drip to control rate. Patient was also found to have elevated thyroid levels, consistent with hyperthyroidism. Patient was then started on Methimazole and Propranolol, after which Cardizem drip was discontinued. Patient's heart rate remained in normal sinus rhythm on Propranol. Patient had thyroid antibodies ordered. Patient did not experience any adverse effects of Methimazole while in hospital. Given history of alcohol abuse, he was also on CIWA protocol and patient was monitored for signs of withdrawal. On discharge, patient was medically stable, in normal sinus rhythm. Imagin05/23/18 CXR negative 05/24/18 Thyroid ultrasound: Enlarged heterogeneous hypervascular thyroid 05/25/18 Thyroid nuclear scan: no hot or cold nodule. normal 24 hr RAIU of 37%. ECHO normal LV function. LV EF is within normal range. no regional wall motion abnormalities notied. there is mild tricuspid regurgitaion. right ventricular systolic pressure is estimate at 30-40mmHg. Discharge summary: The following instructions were explained to patient and copy will need to provided to him upon discharge: 1). Schedule follow up with [facility] by calling [phone]. This appointment should take place in 2 to 3 weeks. As you do NOT have a Primary Care Physician, this clinic will be your primary care center to help coordinate your health care, provide you with future prescriptions that you will need to have filled at your pharmacy, and provide you with referrals for Leather Skinner and Diesel Truck Technician (specialists that you will need to follow up with considering your abnormal heart rythm and hyperthyroidism). 2). You were provided with a 30 day supply of the following medications. Please use them as instructed. You must follow up with the [facility] BEFORE you run out of these medications so that you may be provided with prescriptions that you will need to have filled at your pharmacy: Methimazole 10 mg, 3 tablets all at once by mouth 1x/day (8 AM), Dispense #90, NO refills Propranolol 80 mg, 1 tablet by mouth 1x/day (1 PM), Dispense #30, NO refills Aspirin 81 mg, 1 tablet by mouth 1x/day (1 PM), Dispense #30, NO refills 3). You must stop smoking as this will kill you. We recommend that you obtain Nicotine Patch at [facility]: Nicotine 21 mg Patch Week 1 through 6 Nicotine 14 mg Patch Weeks 7 and 8 Nicotine 7 mg Patch Weeks 9 and 10 You can not smoke while on the nicotine patch! 4). You must stop drinking alcohol as this has likely contributed to your abnormal heart rhythm. Please perform a Google Search on the internet for the closest Alcohol Anonymous meetings near you. 5). Please take care and be well. Discharge Exam - Head Exam Head Exam: ATRAUMATIC - Eye Exam Eye Exam: EOMI - ENT Exam ENT Exam: Mucous Membranes Moist - Neck Exam Neck exam: Thyromegaly - Respiratory Exam Respiratory Exam: Clear to PA & Lateral, NORMAL BREATHING PATTERN. absent: Rales, Rhonchi - Cardiovascular Exam Cardiovascular Exam: REGULAR RHYTHM, +S1, +S2 - GI/Abdominal Exam GI & Abdominal Exam: Normal Bowel Sounds, Soft. absent: Distended, Firm, Guarding, Hernia, Tenderness - Extremities Exam Additional comments: no calf tenderness or pedal edema. Abrasion to right knee. - Neurological Exam Neurological exam: Alert, CN II-XII Intact, Oriented x3 Discharge Plan - Discharge Medications Prescriptions: Aspirin [Adult Aspirin] 81 mg PO DAILY #30 tablet. methIMAzole [Tapazole] 10 mg PO DAILY #90 tab Propranolol [Inderal] 80 mg PO DAILY #30 tab - Follow Up Plan Condition: STABLE Disposition: HOME/ ROUTINE Instructions: Smoking: Not Just Harmful to Your Lungs and Heart, Atrial Fibrillation (DC), Quitting Smoking, Aspirin, Methimazole, Propranolol, Effects of Alcohol on Your Health Additional Instructions: The following instructions were explained to patient and copy will need to provided to him upon discharge: 1). Schedule follow up with [facility] by calling [phone]. This appointment should take place in 2 to 3 weeks. As you do NOT have a Primary Care Physician, this clinic will be your primary care center to help coordinate your health care, provide you with future prescriptions that you will need to have filled at your pharmacy, and provide you with referrals for Leather Skinner and Diesel Truck Technician (specialists that you will need to follow up with considering your abnormal heart rythm and hyperthyroidism). 2). You were provided with a 30 day supply of the following medications. Please use them as instructed. You must follow up with the [facility] BEFORE you run out of these medications so that you may be provided with prescriptions that you will need to have filled at your pharmacy: Methimazole 10 mg, 3 tablets all at once by mouth 1x/day (8 AM), Dispense #90, NO refills Propranolol 80 mg, 1 tablet by mouth 1x/day (1 PM), Dispense #30, NO refills Aspirin 81 mg, 1 tablet by mouth 1x/day (1 PM), Dispense #30, NO refills 3). You must stop smoking as this will kill you. We recommend that you obtain Nicotine Patch at [facility]: Nicotine 21 mg Patch Week 1 through 6 Nicotine 14 mg Patch Weeks 7 and 8 Nicotine 7 mg Patch Weeks 9 and 10 You can not smoke while on the nicotine patch! 4). You must stop drinking alcohol as this has likely contributed to your abnormal heart rhythm. Please perform a Google Search on the internet for the closest Alcohol Anonymous meetings near you. 5). Please take care and be well. Referrals: Paige Croft MD [Medical Doctor] - Jacob Tolentino MD [Staff Provider] - Clinic,Med Surg [Non-Staff] - 2 Weeks (make an appointment for 2-3 weeks)
[2018-05-26 17:46] LABS: TBII 68.4 % (<=16.0)
[2018-05-26 18:46] LABS: TSI 611 % baseline (<140)
--- NOTE | 2018-05-26 20:43 | PN ---
DATE: 05/26/2018 ENDO FOLLOWUP NOTE LOCATION: In room #565. SUBJECTIVE: This is a 32-year-old male with recent overt thyrotoxicosis, presenting here with marked hyperthyroidism both historically, clinically, and biochemically related to underlying autoimmune thyroiditis, i.e. Graves disease, with a concomitant diffuse toxic goiter. He also came in with rapid atrial fibrillation and since then he improved clinically and hemodynamically as noted thereof. His latest chemistries showed a BUN of 10, sodium 139, potassium 4.7, chloride 103, CO2 of 26, glucose 175, and creatinine 0.4. His thyroid studies showed a total T4 of greater than 24.9 with a free T4 of 5.7 and a TSH of less than 0.02 and a cortisol level of 7.1. PLAN: So, at this time, we will continue the high-dose medical therapy given as Tapazole 20 mg b.i.d. after meals for inpatient management. However, for eventual discharge today, would recommend Tapazole given as 30 mg p.o. once daily as ordered. We would also recommend a long-acting beta-levi such as propranolol given as 80 mg LA once daily as ordered. Both of these medications are generic and should be fairly affordable by the patient who has no medical insurance at this time. He will follow in our clinic downstairs for ongoing diabetic and metabolic followup. We will follow. Paige Croft MD
--- NOTE | 2018-05-26 21:19 | PN ---
DATE: 05/26/2018 SUBJECTIVE: The patient denies any palpitation, dizziness or chest pain. PHYSICAL EXAMINATION: VITAL SIGNS: Blood pressure 117/71, heart rate 83, temperature 97.8, respiration 20. HEENT: Normocephalic. NECK: Diffuse goiter. No JVD. CHEST: Clear. HEART: S1 and S2 are regular. EXTREMITIES: No edema. ASSESSMENT: 1. Paroxysmal atrial fibrillation. 2. Hyperthyroidism and multinodular goiter. 3. Alcohol abuse, status post alcohol intoxication. RECOMMENDATIONS: Continue current Inderal 20 mg every 6 hours, Tapazole 20 mg twice a day, thiamine 100 mg once a day. The patient was strongly advised to abstain from future alcohol intake. Report to the emergency room when he experiences symptoms of palpitation or dizziness. Follow up with certified athletic trainer for his hyperthyroidism with a followup CBC to rule out any neutropenic side effect of Tapazole. Jacob Tolentino MD
== END 2018-05-26 13:15 | disposition home or self-care (01) | DRG 751 ==
LOC: C.ER 18:27 → C.9E 20:29 → C.5S 05-24 09:23
PROVIDERS: ADMIT Internal Medicine; ATTEND Internal Medicine
DX: F10.120 Alcohol abuse with intoxication, uncomplicated (principal); Y90.7 Blood alcohol level of 200-239 mg/100 ml; E04.2 Nontoxic multinodular goiter; E05.00 Thyrotoxicosis with diffuse goiter without thyrotoxic crisis or storm; E11.9 Type 2 diabetes mellitus without complications; F17.200 Nicotine dependence, unspecified, uncomplicated; I10 Essential (primary) hypertension; I48.0 Paroxysmal atrial fibrillation; Z91.81 History of falling; E06.3 Autoimmune thyroiditis; Z79.4 Long term (current) use of insulin

== ENCOUNTER 2018-11-01 18:13 | Emergency (ER) | payer MEDICAID ==
[2018-11-01 18:26] VITALS: O2SAT 98
[2018-11-01 18:29] VITALS: BMI 23.6
--- NOTE | 2018-11-01 19:15 | C.PDOC ---
History Of Present Illness 33 y/o M c PMHx hyperthyroidism presents for sore throat x 2 weeks with dry cough, pruritic rash in groin, and refill of medications. Patient states released from long-term and has no medications. Denies fever, chills, dyspnea, nausea, vomiting, dysuria, hematuria, diarrhea. Time Seen by Provider: 11/01/18 18:57 Chief Complaint (Nursing): ENT Problem Past Medical History Vital Signs: Last Vital Signs Temp 98.2 F 11/01/18 18:24 Pulse 104 H 11/01/18 18:24 Resp 16 11/01/18 18:24 BP 144/80 11/01/18 18:24 Pulse Ox 98 11/01/18 18:24 - Medical History PMH: Hyperthyroidism Denies: Diabetes, Hepatitis, HIV, HTN, Seizures, Sexually Transmitted Disease Family History: States: No Known Family Hx - Social History Hx Tobacco Use: Yes Hx Alcohol Use: Yes Hx Substance Use: No - Immunization History Hx Tetanus Toxoid Vaccination: Yes ("while I was in long-term" as per patient) Hx Influenza Vaccination: No Hx Pneumococcal Vaccination: No Review Of Systems Except As Marked, All Systems Reviewed And Found Negative. Constitutional: Negative for: Fever Respiratory: Negative for: Shortness of Breath Physical Exam - Physical Exam Additional Physical Exam Comments: Gen: NAD Head: NC/AT Eyes: PERRL ENT: MMM, no pharyngeal erythema or exudates. uvula midline. Chest: No tenderness CV: Radial pulses 2+ b/l Lungs: CTA b/l Abd: Soft, NT : Erythematous plauqes/papules in perineral region with excoriations without discharge or tenderness Skin: As above Extrmeities: No edema Neuro: Alert ED Course And Treatment O2 Sat by Pulse Oximetry: 98 Medical Decision Making Medical Decision Making: Patient's previous hospitalization reviewed for home dose medication prescriptions, prescribed for 1 week, instructed to f/u with [facility] for primary care follow up for more refills. Disposition - Disposition Disposition: HOME/ ROUTINE Disposition Time: 19:16 Condition: STABLE Additional Instructions: You must follow up with a doctor at the [facility] [place] for refills of these medications. Prescriptions: Aspirin [Aspirin Chewable] 81 mg PO DAILY #30 ctb Clotrimazole 1% Cream [Lotrimin 1%] 1 appl TOP TID #1 tube Methimazole 3 tab PO ONCE #21 tablet Propranolol [Inderal LA] 80 mg PO DAILY #7 cap Instructions: Conor Itch (DC) Forms: [facility] (Ecuadorean), Work Excuse - Clinical Impression Clinical Impression: Tinea cruris
[2018-11-01 19:37] VITALS: BP 124/83; PULSE 79; RESP 20; TEMP 98.4
== END 2018-11-01 19:32 | disposition home or self-care (01) ==
LOC: C.ER 18:13
DX: B35.6 Tinea cruris (principal)